=== PATIENT | male | born 1990 | race American Indian/Alaskan Native ===

== ENCOUNTER 2018-08-01 10:02 | Emergency (ER) | payer OTHER ==
--- NOTE | 2018-08-01 11:31 | Emergency Department Report ---
ED Abdominal Pain HPI - General Chief Complaint: Abdominal Pain Stated Complaint: LOWER ABD PAIN/FEVER Time Seen by Provider: 08/01/18 11:12 Source: patient Mode of arrival: Ambulatory Limitations: No Limitations - History of Present Illness Initial Comments: Patient is a 27-year-old male that presents emergency room with complaints of lower abdominal pain. Patient also complains of fever and dysuria. Patient states his symptoms started 6 days ago. Patient states that the fever is improving and has been treated with ibuprofen. Patient states the abdominal pain as a 5 out of 10. Patient states it is a aching pain in the lower abdomen. Patient states the pain is better with rest and worse with palpation and movement. Patient states that the dysuria is a burning sensation in his penis. Patient denies penile discharge. Patient patient states he is unsure if he has an STD. Patient denies chest pain or shortness of breath. Patient denies chills. Patient states that his fever went away 24 hours ago. Patient's last dose of ibuprofen was 2 days ago she denies cough. Patient denies sore throat. MD Complaint: abdominal pain -: Sudden Location: suprapubic Radiation: none Migration to: no migration Severity: moderate Severity scale (0 -10): 5 Quality: aching Consistency: constant Improves With: rest Worsens With: movement Associated Symptoms: fever, dysuria. denies: nausea, vomiting, diarrhea, chills, constipation, hematemesis, hematochezia, melena, hematuria, anorexia, syncope - Related Data Previous Rx's Medication Instructions Recorded Last Taken Type Diclofenac Dr [Voltaren Dr] 75 mg PO Q12H #20 tablet 12/01/14 Unknown Rx traMADol [Ultram 50 MG tab] 50 mg PO Q6HR PRN #16 tablet 12/01/14 Unknown Rx Ciprofloxacin HCl [Ciprofloxacin 500 mg PO Q12HR 10 Days #20 tab 08/01/18 Unknown Rx TAB] Allergies Allergy/AdvReac Type Severity Reaction Status Date / Time No Known Allergies Allergy Verified 08/01/18 10:05 ED Review of Systems ROS: Stated complaint: LOWER ABD PAIN/FEVER Other details as noted in HPI Constitutional: fever. denies: chills Eyes: denies: eye pain, eye discharge, vision change ENT: denies: ear pain, throat pain Respiratory: denies: cough, shortness of breath, wheezing Cardiovascular: denies: chest pain, palpitations Endocrine: no symptoms reported Gastrointestinal: abdominal pain. denies: nausea, diarrhea Genitourinary: dysuria. denies: urgency Musculoskeletal: denies: back pain, joint swelling, arthralgia Skin: denies: rash, lesions Neurological: denies: headache, weakness, paresthesias Psychiatric: denies: anxiety, depression Hematological/Lymphatic: denies: easy bleeding, easy bruising ED Past Medical Hx - Past Medical History Previous Medical History?: No - Surgical History Past Surgical History?: No - Family History Family history: no significant - Social History Smoking Status: Never Smoker Substance Use Type: None - Medications Home Medications: Home Medications Medication Instructions Recorded Confirmed Last Taken Type Diclofenac Dr [Voltaren Dr] 75 mg PO Q12H #20 tablet 12/01/14 Unknown Rx traMADol [Ultram 50 MG tab] 50 mg PO Q6HR PRN #16 tablet 12/01/14 Unknown Rx Ciprofloxacin HCl [Ciprofloxacin 500 mg PO Q12HR 10 Days #20 tab 08/01/18 Unk nown Rx TAB] ED Physical Exam - General Limitations: No Limitations General appearance: alert, in no apparent distress - Head Head exam: Present: atraumatic, normocephalic - Eye Eye exam: Present: normal appearance - ENT ENT exam: Present: mucous membranes moist - Neck Neck exam: Present: normal inspection - Respiratory Respiratory exam: Present: normal lung sounds bilaterally. Absent: respiratory distress - Cardiovascular Cardiovascular Exam: Present: regular rate, normal rhythm. Absent: systolic murmur, diastolic murmur, rubs, gallop - GI/Abdominal GI/Abdominal exam: Present: soft, tenderness (suprapubic tenderness), normal bowel sounds - Rectal Rectal exam: Present: deferred - Extremities Exam Extremities exam: Present: normal inspection - Back Exam Back exam: Present: normal inspection - Neurological Exam Neurological exam: Present: alert, oriented X3 - Psychiatric Psychiatric exam: Present: normal affect, normal mood - Skin Skin exam: Present: warm, dry, intact, normal color. Absent: rash ED Course Vital Signs 08/01/18 08/01/18 08/01/18 10:09 12:57 13:15 Temperature 98.2 F 98.2 F Pulse Rate 74 74 Respiratory 16 16 Rate Blood Pressure 129/83 125/82 O2 Sat by Pulse 99 99 Oximetry - Reevaluation(s) Reevaluation #1: Discussed all results to patient. Patient will be given Rocephin IM and azithromycin 1 g. She states he's had multiple urinary tract infections in the past. Patient states she doesn't believe it's an STD. Patient is stable for discharge. Patient given discharge instructions. Patient was understanding of all discharge instructions. 08/01/18 12:45 ED Medical Decision Making - Lab Data Result diagrams: 08/01/18 11:22 08/01/18 11:22 - Medical Decision Making Patient is a 27-year-old male that is emergency room with complaints of dysuria and lower abdominal pain. Patient labs unremarkable. Patient found to have UTI. Discussed STDs with patient. Patient given discharge instructions. Patient stable for discharge. Patient will be discharged home. Patient given Rocephin IM and a gram of Zithromax prior to discharge. Patient will start antibiotics tomorrow. Patient voiced understanding of all discharge and medication instructions. - Differential Diagnosis STD. UTI. Abdominal pain. Dysuria. Critical care attestation.: If time is entered above; I have spent that time in minutes in the direct care of this critically ill patient, excluding procedure time. ED Disposition Clinical Impression: Dysuria UTI (urinary tract infection) Qualifiers: Urinary tract infection type: acute cystitis Hematuria presence: with hematuria Qualified Code(s): N30.01 - Acute cystitis with hematuria Abdominal pain Qualifiers: Abdominal location: lower abdomen, unspecified Qualified Code(s): R10.30 - Lower abdominal pain, unspecified Disposition: - TO HOME OR SELFCARE Is pt being admited?: No Does the pt Need Aspirin: No Condition: Stable Instructions: Urinary Tract Infection in Men (ED), Dysuria (ED), Abdominal Pain (ED) Additional Instructions: Patient to follow up with primary care in 2-3 days. Patient take medications as directed. Patient to return to ER if condition worsens. Patient to increase water. Patient to rest. Patient take Tylenol or ibuprofen when necessary for pain. Prescriptions: Ciprofloxacin HCl [Ciprofloxacin TAB] 500 mg PO Q12HR 10 Days #20 tab Referrals: KADEN LYNN MD [Primary Care Provider] - 2-3 Days Forms: Work/School Release Form(ED) Time of Disposition: 12:50
[2018-08-01 11:40] LABS: Hematocrit 42.2 % (35.5-45.6); Hemoglobin 14.8 gm/dl (11.8-15.2); Mean Corpuscular HGB Conc 35 % (32-34); Mean Corpuscular Volume 85 fl (84-94); Platelet Count 210 K/mm3 (140-440); Red Blood Count 4.98 M/mm3 (3.65-5.03); Red Cell Distribution Width 13.6 % (13.2-15.2)
[2018-08-01 11:57] LABS: Alanine Aminotransferase 25 units/L (7-56); Albumin 4.3 g/dL (3.9-5); BUN/Creatinine Ratio 10; Blood Urea Nitrogen 10 mg/dL (9-20); Calcium 9.3 mg/dL (8.4-10.2); Hemolysis Index 30
[2018-08-01 12:01] LABS: Bilirubin,Direct < 0.2 mg/dL (0-0.2)
[2018-08-01 12:16] LABS: Bilirubin,Urine NEG (Negative); Blood,Urine MOD (Negative); Color,Urine Amber (Yellow); Mucus,Urine 3+ /HPF
[2018-08-01] MEDS ORDERED: ZITHROMAX PO ONE (12:46)
[2018-08-01] MEDS ORDERED: ROCEPHIN IM ONE (12:46)
[2018-08-01] MEDS ORDERED: XYLOCAINE 1% MPF 5 mL INFILTRATI ONE (12:46)
[2018-08-01 12:48] LABS: Basophils % (Manual) 0 % (0.0-1.8); RBC Morphology Normal; Total Cells Counted 100
[2018-08-01 12:49] LABS: Platelet Estimate Consistent w Auto
[2018-08-01 12:57] VITALS: BP 125/82
== END 2018-08-01 14:03 | disposition home or self-care (01) ==
LOC: ED 10:02
DX: N39.0 Urinary tract infection, site not specified (principal); F50.9 Eating disorder, unspecified
CPT/HCPCS: 36415; 80048; 80076; 81001; 85007; 85025; 87591; 96372; 99283; J0696